=== PATIENT | female | born 1980 | race African-American/Black ===

== ENCOUNTER 2017-01-24 15:24 | Emergency (ER) | payer OTHER ==
[2017-01-24 15:37] VITALS: BP 116/69
--- NOTE | 2017-01-24 17:06 | UC ---
Skin Complaint HPI - HPI Summary HPI Summary: PAINFUL RASH ON LEFT BUTTOCKS. HAS OCCURED BEFORE NO DISCHARGE. HISTORY OF [place] FEELS/LOOKS THE SAME. - History of Current Complaint Chief Complaint: UCSkin Time Seen by Provider: 01/24/17 16:00 Stated Complaint: SKIN COMPLAINT Hx Obtained From: Patient Hx Last Menstrual Period: Nexplanon Onset/Duration: Sudden Onset, Lasting Days Skin Exposure Onset/Duration: Days Ago Onset Severity: Mild Current Severity: Mild Pain Intensity: 5 Pain Scale Used: 0-10 Numeric Location: Discrete Aggravating: Nothing Alleviating: Nothing Associated Signs & Symptoms: Positive: Rash, Tenderness. Negative: Fever, Chills, Cough, Wheezing, Throat Tightening, Syncope, Drainage, Bruising, Red Streaks - Allergy/Home Medications Allergies/Adverse Reactions: Allergies Allergy/AdvReac Type Severity Reaction Status Date / Time No Known Allergies Allergy Verified 01/24/17 15:29 Home Medications: Home Medications Cetirizine* [ZyrTEC 10 MG TAB*] 1 tab DAILY 01/24/17 [History Confirmed 01/24/17 ] Etonogestrel [Nexplanon] 1 imp ONCE 01/24/17 [History Confirmed 01/24/17] Fexofenadine (NF) [Anuradha (NF)] 1 tab DAILY 01/24/17 [History Confirmed ] Review of Systems Constitutional: Negative Skin: Rash Eyes: Negative ENT: Negative Respiratory: Negative Cardiovascular: Negative Gastrointestinal: Negative Genitourinary: Negative Motor: Negative Neurovascular: Negative Musculoskeletal: Negative Neurological: Negative Psychological: Negative Is Patient Immunocompromised?: No All Other Systems Reviewed And Are Negative: Yes PMH/Surg Hx/FS Hx/Imm Hx Previously Healthy: Yes Other History Of: Negative For: HIV, Hepatitis B, Hepatitis C, Anticoagulant Therapy - Surgical History Surgical History: Yes Surgery Procedure, Year, and Place: 2 C-SECTS. HERNIA REPAIR - Family History Known Family History: Positive: None Negative: Diabetes - Social History Occupation: Employed Full-time Lives: With Family Alcohol Use: Weekly Alcohol Amount: 2-3 beers twice a week Substance Use Type: Marijuana Substance Use Comment - Amount & Last Used: occasional use- 2 weeks ago Smoking Status (MU): Light Every Day Tobacco Smoker Type: Cigarettes Amount Used/How Often: 3 cigarettes daily Length of Time of Smoking/Using Tobacco: 22 YRS Have You Smoked in the Last Year: Yes Household Exposure Type: Cigarettes Cessation Counseling: Patient Advised to Stop - Immunization History Most Recent Influenza Vaccination: NOT YET 2017 Most Recent Tetanus Shot: 2009 Physical Exam Triage Information Reviewed: Yes Appearance: Well-Appearing, No Pain Distress, Well-Nourished Vital Signs: Initial Vital Signs Temp 97.3 F 01/24/17 15:31 Pulse 85 01/24/17 15:31 Resp 16 01/24/17 15:31 BP 116/69 01/24/17 15:31 Pulse Ox 98 01/24/17 15:31 Vital Signs Reviewed: Yes Eye Exam: Normal ENT Exam: Normal ENT: Positive: Normal ENT inspection Dental Exam: Normal Neck exam: Normal Neck: Positive: Supple, Nontender, No Lymphadenopathy Respiratory Exam: Normal Respiratory: Positive: Chest non-tender, Lungs clear, Normal breath sounds, No respiratory distress, No accessory muscle use Cardiovascular Exam: Normal Cardiovascular: Positive: RRR, No Murmur, Pulses Normal Abdominal Exam: Normal Abdomen Description: Positive: Nontender, No Organomegaly, Soft Musculoskeletal Exam: Normal Musculoskeletal: Positive: Strength Intact, ROM Intact Neurological Exam: Normal Psychological Exam: Normal Psychological: Positive: Normal Response To Family Skin: Positive: rashes - VESICULAR RASH LEFT BUTTOCKS Course/Dx - Differential Diagnoses - Skin Complaint Differential Diagnoses: Abscess, Cellulitis, Contact Dermatitis, Impetigo, Local Allergic Reaction, MRSA, Poison Janie, Poison [place], Tinea, Varicella Zoster, Viral Exanthem - Diagnoses Provider Diagnoses: HERPES ZOSTER Discharge - Discharge Plan Condition: Stable Disposition: HOME Prescriptions: Famciclovir(NF) [Famvir(NF)] 500 mg PO TID #21 tab Patient Education Materials: Shingles (ED) Forms: *Work Release Referrals: Jillian Severino MD [Primary Care Provider] - Images Front/Back of Body, Lg ([place]): 1 - VESICUALR TENDER RASH LEFT BUTTOCKS
== END 2017-01-24 16:25 | disposition home or self-care (01) ==
LOC: UCCORT 15:24
DX: B02.9 Zoster without complications (principal); F17.210 Nicotine dependence, cigarettes, uncomplicated; Z71.6 Tobacco abuse counseling
CPT/HCPCS: 99212; G0463

== ENCOUNTER 2018-03-03 17:00 | Emergency (ER) | payer BC, OTHER ==
[2018-03-03 18:16] VITALS: BP 111/73
[2018-03-03] MEDS ORDERED: Fluorescein Sodium TOPICAL* 1 MG TEST STRIP OPHTHALMIC ONE (18:19)
[2018-03-03] MEDS ORDERED: Tetracaine 0.5% OPTH.SOL 4 ML* 1 DROP BTL LEFT EYE ONE (18:19)
--- NOTE | 2018-03-03 18:26 | UC ---
Eye Complaint HPI - HPI Summary HPI Summary: this friday, pt noted l eye itching, redness and mild swelling that has been worsening. 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 pt feels vision blurry from that eye. no injury, contact use or uri. - History of Current Complaint Chief Complaint: UCEye Stated Complaint: LEFT EYE ISSUE Time Seen by Provider: 03/03/18 18:17 Hx Obtained From: Patient Hx Last Menstrual Period: NEXPLAMON. DOES NOT HAVE REG PERIODS Onset/Duration: Gradual Onset Timing: Constant Pain Intensity: 8 Aggravating Factor(s): Nothing Alleviating Factor(s): Nothing Associated Signs And Symptoms: Positive: Drainage (Clear), Vision Impairment Left, Swelling. Negative: Photophobia, Fever - Allergies/Home Medications Allergies/Adverse Reactions: Allergies Allergy/AdvReac Type Severity Reaction Status Date / Time No Known Allergies Allergy Verified 03/03/18 18:04 Home Medications: Home Medications Moxifloxacin 0.5% OPHTH(NF) [Vigamox 0.5% OPHTH(NF)] 1 drop LEFT EYE TID [History Confirmed 03/03/18] ValACYclovir (*) [Valtrex 500 mg (*)] 500 mg PO DAILY 03/03/18 [History Confirmed 03/03/18] PMH/Surg Hx/FS Hx/Imm Hx Previously Healthy: Yes Other History Of: Negative For: HIV, Hepatitis B, Hepatitis C, Anticoagulant Therapy - Surgical History Surgical History: Yes Surgery Procedure, Year, and Place: 2 C-SECTS. HERNIA REPAIR - Family History Known Family History: Positive: Cardiac Disease - Social History Occupation: Employed Full-time Alcohol Use: Weekly Alcohol Amount: 2-3 beers twice a week Substance Use Type: Marijuana Substance Use Comment - Amount & Last Used: occasional use- 2 weeks ago Smoking Status (MU): Light Every Day Tobacco Smoker Type: Cigarettes Amount Used/How Often: 2 CIGS DAY Length of Time of Smoking/Using Tobacco: 22 YRS Have You Smoked in the Last Year: Yes Household Exposure Type: Cigarettes - Immunization History Most Recent Influenza Vaccination: NOT YET 2017 Most Recent Tetanus Shot: 2009 Vaccination Up to Date: Yes Review of Systems Constitutional: Negative Skin: Negative Eyes: Blurred Vision - L, Drainage - L, Eye Redness - L ENT: Negative Respiratory: Negative Cardiovascular: Negative Gastrointestinal: Negative Genitourinary: Negative Motor: Negative Neurovascular: Negative Musculoskeletal: Negative Neurological: Negative Psychological: Negative Is Patient Immunocompromised?: No All Other Systems Reviewed And Are Negative: Yes Physical Exam Triage Information Reviewed: Yes Appearance: Well-Appearing Vital Signs: Initial Vital Signs Temp 97.6 F 03/03/18 18:06 Pulse 72 03/03/18 18:06 Resp 17 03/03/18 18:06 BP 111/73 03/03/18 18:06 Pulse Ox 100 03/03/18 18:06 Eye Exam: Normal Eyes: Positive: Other: - vision with glasses od 20/20, ou 20/20, os 20/20. Slight preauricular adenopathy x2. Slight swelling L upper lid but no erythema, warmth or tenderness. PERRL. EOMI and painless. Lids kiley, no FB's. AC's clear. Conjunctiva R clear. Conjunctiva on L has mild swelling and eye is deeply injected. Globe on L not firm or tender to palpation. Stained and no ulceration, abrasions or dendrites. No uptake of stain. ENT: Positive: Pharynx normal, TMs normal. Negative: Nasal congestion, Nasal drainage Neck: Positive: Supple, Nontender, No Lymphadenopathy Respiratory: Positive: Lungs clear, Normal breath sounds Cardiovascular: Positive: RRR, No Murmur Abdomen Description: Positive: Nontender, No Organomegaly, Soft Bowel Sounds: Positive: Present Musculoskeletal: Positive: ROM Intact Neurological: Positive: Alert Psychological: Positive: Age Appropriate Behavior Skin Exam: Normal Skin: Negative: rashes Eye Complaint Course/Dx - Course Course Of Treatment: No concern for glaucoma. No FB and no corneal ulcer, abrasion or dendrites. No concern for periorbital cellulitis. Worsening despite Moxifloxacin thus will d/c. Give preauricular adenopathy, may be viral. Pt refuses f/u in [place] for opthamology. She is not willing to wait for [facility] thus I will refer her to Dr Macais per pt request given office location. pt advised to call first thing in am to be seen the same day j carlos. pt advised to go to ER for any worsening. - Differential Dx/Diagnosis Differential Diagnosis/HQI/PQRI: Conjunctivitis, Corneal Abrasion, Foreign Body , Keratitis Provider Diagnoses: Conjunctival chemosis L eye. Injected L eye. Discharge - Sign-Out/Discharge Documenting (check all that apply): Patient Departure All imaging exams completed and their final reports reviewed: No Studies - Discharge Plan Condition: Stable Disposition: HOME Patient Education Materials: Eye Pain (ED), Conjunctivitis (ED) Forms: *Work Release Referrals: Bobbi Macias MD [Medical Doctor] - 1 Day Additional Instructions: STOP THE MOXIFLOXACIN SINCE EYE IS WORSENING WITH ITS USE. GO TO THE ER FOR ANY WORSENING. - Billing Disposition and Condition Condition: STABLE Disposition: Home
== END 2018-03-03 19:09 | disposition home or self-care (01) ==
LOC: UCCORT 17:00
DX: H11.422 Conjunctival edema, left eye (principal); F17.210 Nicotine dependence, cigarettes, uncomplicated
CPT/HCPCS: 99212; A9270-GY; G0463

== ENCOUNTER 2019-07-22 12:44 | Emergency (ER) | payer BC ==
[2019-07-22 13:47] VITALS: BP 123/78
--- NOTE | 2019-07-22 15:37 | UC ---
Respiratory Complaint HPI - HPI Summary HPI Summary: 38 yo female with cough/wheeze/runny nose x 5 days no fever no cp or sob - History of Current Complaint Chief Complaint: UCGeneralIllness Stated Complaint: COUGH Time Seen by Provider: 07/22/19 15:24 Hx Obtained From: Patient Hx Last Menstrual Period: NEXPLAMON. DOES NOT HAVE REG PERIODS Onset/Duration: Gradual Onset, Lasting Days Timing: Constant Severity Initially: Mild Severity Currently: Mild Pain Intensity: 0 Pain Scale Used: 0-10 Numeric Character: Cough: Nonproductive Aggravating Factors: Allergens Alleviating Factors: Nothing Associated Signs And Symptoms: Positive: Wheezing, Nasal Congestion - Allergies/Home Medications Allergies/Adverse Reactions: Allergies Allergy/AdvReac Type Severity Reaction Status Date / Time No Known Allergies Allergy Verified 07/22/19 13:47 Home Medications: Home Medications Cetirizine* [ZyrTEC 10 MG TAB*] 1 tab DAILY 01/24/17 [History Confirmed 07/22/19 ] Etonogestrel [Nexplanon] 1 imp ONCE 01/24/17 [History Confirmed 07/22/19] Fexofenadine (NF) [Anuradha (NF)] 1 tab DAILY 01/24/17 [History Confirmed ] ValACYclovir (*) [Valtrex 500 mg (*)] 500 mg PO DAILY 03/03/18 [History Confirmed 07/22/19] Benzonatate CAP* [Tessalon CAP*] 100 - 200 mg PO TID PRN #28 cap 07/22/19 [Rx] Fluticasone HFA 220 mcg(NF) [Flovent HFA 220 Mcg(NF)] 2 puff INH BID #1 mdi 04/30 [Rx] PMH/Surg Hx/FS Hx/Imm Hx Previously Healthy: Yes Respiratory History: Asthma, Bronchitis Other History Of: Negative For: HIV, Hepatitis B, Hepatitis C, Anticoagulant Therapy - Surgical History Surgical History: Yes Surgery Procedure, Year, and Place: 2 C-SECTS. HERNIA REPAIR - Family History Known Family History: Positive: Cardiac Disease, Hypertension Negative: Diabetes - Social History Alcohol Use: Weekly Alcohol Amount: 2-3 beers twice a week Substance Use Type: Marijuana Substance Use Comment - Amount & Last Used: occasional use- 2 weeks ago Smoking Status (MU): Light Every Day Tobacco Smoker Type: Cigarettes Amount Used/How Often: 2-3 CIGS DAY Length of Time of Smoking/Using Tobacco: 22 YRS Have You Smoked in the Last Year: Yes Household Exposure Type: Cigarettes - Immunization History Most Recent Influenza Vaccination: NOT YET 2017 Most Recent Tetanus Shot: 2009 Vaccination Up to Date: Yes Review of Systems All Other Systems Reviewed And Are Negative: Yes Constitutional: Positive: Fatigue Skin: Positive: Negative Eyes: Positive: Negative ENT: Positive: Nasal Discharge - and sneezing Respiratory: Positive: Cough Cardiovascular: Positive: Negative Gastrointestinal: Positive: Negative Genitourinary: Positive: Negative Motor: Positive: Negative Neurovascular: Positive: Negative Musculoskeletal: Positive: Negative Neurological/Mental Status: Positive: Negative Psychological: Positive: Negative Physical Exam Triage Information Reviewed: Yes Appearance: Well-Appearing, No Pain Distress, Well-Nourished Vital Signs: Initial Vital Signs Temp 98.0 F 07/22/19 13:42 Pulse 69 07/22/19 13:42 Resp 18 07/22/19 13:42 BP 123/78 07/22/19 13:42 Pulse Ox 99 07/22/19 13:42 Vital Signs Reviewed: Yes Eyes: Positive: Conjunctiva Clear ENT: Positive: Hearing grossly normal, Nasal congestion, Nasal drainage, Tonsillar swelling, Uvula midline. Negative: Tonsillar exudate, Trismus, Hoarse voice Dental Exam: Normal Neck: Positive: Supple, Nontender, No Lymphadenopathy Respiratory: Positive: No respiratory distress, No accessory muscle use, Wheezing - with forced expiration only Cardiovascular: Positive: RRR Musculoskeletal: Positive: ROM Intact, No Edema Neurological: Positive: Alert Psychological Exam: Normal Skin Exam: Normal Respiratory Course/Dx - Differential Dx/Diagnosis Provider Diagnosis: Bronchospasm, Allergic rhinitis Discharge ED - Sign-Out/Discharge Documenting (check all that apply): Patient Departure All imaging exams completed and their final reports reviewed: No Studies - Discharge Plan Condition: Stable Disposition: HOME Prescriptions: Benzonatate CAP* [Tessalon CAP*] 100 - 200 mg PO TID PRN #28 cap PRN Reason: Cough Fluticasone HFA 220 mcg(NF) [Flovent HFA 220 Mcg(NF)] 2 puff INH BID #1 mdi Patient Education Materials: Allergic Rhinitis (ED), Bronchospasm (ED) Forms: *Work Release Referrals: Jillian Severino MD [Primary Care Provider] - 5 Days (if not better) Additional Instructions: use your rescue inhaler 2 puffs 4x day for 5 days consider taking two 25 mg bendadyl at bedtime for nasal congestion - Billing Disposition and Condition Condition: STABLE Disposition: Home
== END 2019-07-22 15:41 | disposition home or self-care (01) ==
LOC: UCCORT 12:44
DX: J45.909 Unspecified asthma, uncomplicated (principal); F17.210 Nicotine dependence, cigarettes, uncomplicated
CPT/HCPCS: 99212; G0463